=== PATIENT | female | born 1965 | race Caucasian/White ===

== ENCOUNTER → 2018-05-20 | Outpatient (CLI) | payer BC | END | disposition home or self-care (01) | LOC: RAD 09:34 | PROVIDERS: ATTEND Internal Medicine Gastroenterology | DX: R93.2 Abnormal findings on diagnostic imaging of liver and biliary tract (principal); R11.0 Nausea; R63.4 Abnormal weight loss | CPT/HCPCS: 78227; A9537 ==

== ENCOUNTER → 2018-06-16 | Outpatient (CLI) | payer BC ==
[~2018-06-16] MED LIST: BIOT25005 PO
== END | disposition home or self-care (01) ==
LOC: STAR 08:09
PROVIDERS: ATTEND Surgery
DX: Z02.9 Encounter for administrative examinations, unspecified (principal)

== ENCOUNTER 2018-07-03 06:14 | Day surgery (SDC) | payer BC ==
[~2018-07-03] VITALS: Ht 170.2 cm; Wt 64.5 kg
[2018-07-03] MEDS ORDERED: LACTATED RINGERS 1,000 ML IV SCH (06:35)
[2018-07-03 06:40] VITALS: BP 138/81
[2018-07-03 07:08] LABS: HCG UR SG 1.032 (1.003-1.030)
[2018-07-03] MEDS ORDERED: BUPIVACAINE/PF 0.5% ONE (07:15)
[2018-07-03] MEDS ORDERED: FENTANYL PF 250 MCG/5ML ONE (07:49)
[2018-07-03] MEDS ORDERED: MIDAZOLAM 1 MG/ML, 2ML ONE (07:49)
[2018-07-03] MEDS ORDERED: ROCURONIUM 10MG/ML,5ML ONE (07:52)
[2018-07-03] MEDS ORDERED: ONDANSETRON 2MG/ML, 2ML ONE (07:52)
[2018-07-03] MEDS ORDERED: DEXAMETHASONE 4 MG/ML, 1ML ONE (07:52)
[2018-07-03] MEDS ORDERED: PROPOFOL 10 MG/ML, 20ML ONE (07:53)
[2018-07-03] MEDS ORDERED: KETOROLAC 30 MG/1 ML ONE (08:13)
[2018-07-03] MEDS ORDERED: DIAZEPAM 5 MG/ML, 2ML IVPush PRN (08:30)
[2018-07-03] MEDS ORDERED: MORPHINE SULFATE 4 MG/ML, 1ML IVPush PRN (08:30)
[2018-07-03] MEDS ORDERED: ONDANSETRON ODT 8 MG PO PRN (08:30)
[2018-07-03] MEDS ORDERED: PROMETHAZINE 25 MG/ML, 1ML IV PRN (08:30)
[2018-07-03] MEDS ORDERED: PROMETHAZINE 12.5 MG SUPP PR PRN (08:30)
[2018-07-03] MEDS ORDERED: HALOPERIDOL 5 MG/ML IV PRN (08:30)
[2018-07-03] MEDS ORDERED: ONDANSETRON 2MG/ML, 2ML IV PRN (08:30)
[2018-07-03] MEDS ORDERED: EPHEDRINE 50 MG/ML, 1ML IVPush PRN (08:30)
[2018-07-03] MEDS ORDERED: ALBUTEROL SULFATE 2.5 MG/3 ML NPPB PRN (08:30)
[2018-07-03] MEDS ORDERED: LABETALOL 5MG/ML, 20ML IV PRN (08:30)
[2018-07-03] MEDS ORDERED: MEPERIDINE/PF 25MG/0.5ML IVPush PRN (08:30)
[2018-07-03] MEDS ORDERED: ACETAMINOPHEN 325 MG TABLET PO PRN (08:30)
[2018-07-03] MEDS ORDERED: hydrALAzine 20 MG/ML, 1ML IV PRN (08:30)
[2018-07-03] MEDS ORDERED: HYDROmorphone 2 MG/ML, 1ML IVPush PRN (08:30)
[2018-07-03] MEDS ORDERED: FENTANYL PF 100 MCG/2ML IV PRN (08:30)
[2018-07-03] MEDS ORDERED: MIDAZOLAM 1 MG/ML, 2ML IV PRN (08:30)
[2018-07-03] MEDS ORDERED: ACETAMINOPHEN 650 MG/20.3 ML UDC ONE (08:55)
[2018-07-03] MEDS ORDERED: OXYcodone 5 MG/5 ML ORAL.SOL UDC ONE (08:55)
[2018-07-03] MEDS ORDERED: FENTANYL PF 100 MCG/2ML ONE (08:55)
[2018-07-03] MEDS: OXYcodone 5 MG/5 ML ORAL.SOL UDC PO PRN ×2 (08:58→09:57)
[2018-07-03] MEDS ORDERED: NEOSTIGMINE 1 MG/ML, 10ML ONE (11:19)
[2018-07-03] MEDS ORDERED: GLYCOPYRROLATE 0.2MG/1ML, 5ML ONE (11:19)
[2018-07-03] MEDS ORDERED: CEFAZOLIN 1,000 MG ONE (11:19)
== END 2018-07-03 11:05 | disposition home or self-care (01) ==
LOC: OUT 06:14
PROVIDERS: ATTEND Surgery
DX: K80.10 Calculus of gallbladder with chronic cholecystitis without obstruction (principal); K21.9 Gastro-esophageal reflux disease without esophagitis; Z88.2 Allergy status to sulfonamides; Z79.899 Other long term (current) drug therapy; Z98.890 Other specified postprocedural states; Z82.3 Family history of stroke; Z82.61 Family history of arthritis; Z83.3 Family history of diabetes mellitus; Z80.0 Family history of malignant neoplasm of digestive organs; Z83.49 Family history of other endocrine, nutritional and metabolic diseases; Z72.89 Other problems related to lifestyle
CPT/HCPCS: 47562; 81025; 88304; J0690; J1100; J1885; J2250; J2405; J2704; J2710; J3010; J3490; J7120

== ENCOUNTER → 2020-12-07 | Outpatient (CLI) | payer OTHER | END | disposition home or self-care (01) | LOC: CFH 09:15 | PROVIDERS: ATTEND Obstetrics & Gynecology Gynecology | DX: Z12.31 Encounter for screening mammogram for malignant neoplasm of breast (principal) | CPT/HCPCS: 77063; 77067 ==